=== PATIENT | female | born 1950 | race African-American/Black ===

== ENCOUNTER 2023-12-15 16:14 | Emergency (ER) | payer OTHER ==
[~2023-12-15] VITALS: Ht 162.6 cm; Wt 91.0 kg
[2023-12-15 16:15] VITALS: O2SAT 97
[2023-12-15] MEDS: LIDOCAINE HCL/PF 1% 10 MG/ML 5ML VIAL INFIL ONE (16:30)
[2023-12-15] MEDS: LIDOCAINE HCL/EPINEPHRINE 1%-EPI 1:100,000 20 ML VIAL INFIL ONE (16:30)
[2023-12-15] MEDS: SODIUM CHLORIDE 0.9% 1,000 ML IV ONE (16:30)
[2023-12-15 20:16] LABS: BASOPHILS % 0.9 % (0.0-2.0); EOSINOPHILS % 2.2 % (0.0-5.0); HEMATOCRIT. 42.1 % (36.0-48.0); HEMOGLOBIN. 13.9 g/dL (12.0-16.0); MEAN CORPUSCULAR HEMOGLOBIN 27.9 pg (28.0-32.0); MEAN CORPUSCULAR VOLUME 84.4 fL (81.0-99.0); MEAN PLATELET VOLUME 9.1 fl (7.4-10.4); MONOCYTES % 5.4 % (2.0-8.0); NEUTROPHILS % 72.5 % (40.0-76.0); PLATELET 302 x1000/uL (130-400); RED BLOOD CELL COUNT 4.99 mill/uL (4.2-5.4); RED CELL DISTRIBUTION WIDTH 16.7 % (11.6-14.6); WHITE BLOOD COUNT 9.9 x1000/uL (4.5-11.0)
[2023-12-15 20:22] LABS: CARBON DIOXIDE 28 mEq/L (21-32); CHLORIDE 107 mEq/L (98-107); POTASSIUM 3.6 mEq/L (3.5-5.1); SODIUM 143 mEq/L (136-145)
[2023-12-15] MEDS: DILTIAZEM HCL 5MG/ML 5ML VIAL IV ONE ×2 (20:25→23:28)
[2023-12-15 20:27] LABS: CREATININE 0.9 mg/dL (0.6-1.0)
[2023-12-15 20:28] LABS: GLUCOSE 129 mg/dL (70-105); INR 0.9; PROTHROMBIN TIME 9.9 sec (9.6-11.0); UREA NITROGEN BLOOD 16 mg/dL (9-23)
[2023-12-15 20:30] LABS: TROPONIN I HIGH SENSITIVITY 8 ng/L (3.0-34)
[2023-12-15] MEDS: ASPIRIN 325MG EC TABLET PO ONE (21:34)
[2023-12-15] MEDS ORDERED: CLONIDINE 0.1MG TABLET PO PRN (23:15)
[2023-12-15] MEDS ORDERED: GUAIFENESIN 200MG/10ML SUGAR FREE UDC PO PRN (23:15)
[2023-12-15] MEDS ORDERED: IPRATROPIUM/ALBUTEROL 0.5-3(2.5)MG/3ML NEB HHN PRN (23:15)
[2023-12-15] MEDS ORDERED: DOCUSATE SODIUM 100MG CAPSULE PO PRN (23:15)
[2023-12-15] MEDS ORDERED: ACETAMINOPHEN 325MG TABLET PO PRN (23:15)
[2023-12-15] MEDS ORDERED: MAGNESIUM/ALUMINUM HYDROXIDE/SIMETHICONE 30ML UDC PO PRN (23:15)
[2023-12-15] MEDS ORDERED: ONDANSETRON HCL 4MG/2ML INJ IV PRN (23:15)
[2023-12-15] MEDS: LABETALOL 5MG/ML SYR 20 MG/4 ML SYRINGE IV NR (23:29)
[2023-12-16] MEDS: METOPROLOL TARTRATE 25MG TABLET PO NR (02:15)
[2023-12-16] MEDS ORDERED: DEXTROSE 50% WATER 50ML SYRINGE IV PRN (02:30)
[2023-12-16] MEDS: LABETALOL 5MG/ML SYR 20 MG/4 ML SYRINGE IV NR (03:25)
[2023-12-16 06:43] VITALS: BP 135/79; PULSE 101; RESP 16; TEMP 98
[2023-12-16] MEDS ORDERED: INSULIN LISPRO 100 UNITS/ML SUBCUT SCH (08:20)
[2023-12-16] MEDS ORDERED: BLOOD SUGAR DIAGNOSTIC STRIP TEST SCH (09:00)
[2023-12-16] MEDS ORDERED: METOPROLOL TARTRATE 25MG TABLET PO SCH (09:00)
[2023-12-16] MEDS ORDERED: ATORVASTATIN CALCIUM 20MG TABLET PO SCH (21:00)
[2023-12-16] MEDS ORDERED: FAMOTIDINE 20MG TABLET PO SCH (21:00)
== END 2023-12-16 06:53 | disposition short-term general hospital (02) ==
LOC: ER 16:14 → EDBEDREQSVC 20:50 → EDBEDREQTM 20:50 → EDBEDREQ 20:50 → EDBEDREQSVC 23:39 → ER 12-16 06:53
DX: S01.511A Laceration without foreign body of lip, initial encounter (principal); R55 Syncope and collapse; I48.91 Unspecified atrial fibrillation; E11.9 Type 2 diabetes mellitus without complications; I10 Essential (primary) hypertension; H40.9 Unspecified glaucoma; Z88.5 Allergy status to narcotic agent; Z20.822 Contact with and (suspected) exposure to COVID-19; X58.XXXA Exposure to other specified factors, initial encounter; Y93.89 Activity, other specified; Y92.89 Other specified places as the place of occurrence of the external cause; Y99.8 Other external cause status
CPT/HCPCS: 99285; 93970; 70450; 96374; 96361; 71045; 96375; 80048; 83880; 84443; 85025; 85610; 85730; 84484; 36415; 70486; 93005; 96376 ×2; 87426; J3490 ×4; J7030